=== PATIENT | female | born 1965 | race Two or more races ===

== ENCOUNTER 2016-09-25 22:05 | Emergency (ER) | payer BC ==
[2016-09-25 22:13] VITALS: RESP 18; TEMP 98
[2016-09-25] MEDS ORDERED: DIPH,PERTUS(ACELL)TETVAC-LF 0.5 ML VIAL IM ONE (22:20)
--- NOTE | 2016-09-25 22:34 | ED ---
General Adult HPI - General Chief complaint: Fall Stated complaint: head injury Time Seen by Provider: 09/25/16 22:15 Source: patient, RN notes reviewed Mode of arrival: ambulatory Limitations: no limitations - History of Present Illness Initial comments: This is a 51-year-old female who presents with a laceration to the posterior scalp after a fall that happened about 1 hour ago. Patient states she slipped in her kitchen and hit her head on a step. Patient did not lose consciousness and remembers the incident. Patient has no headache, denies any nausea/vomiting /visual changes/dizziness or neck pain. Patient states she feels fine and she was just concerned about the laceration to the scalp. Patient is not on any anticoagulants. Patient is not on any medication. Patient is unsure if she is up-to-date on her tetanus shot. Patient denies any recent fever, chills, shortness breath, chest pain, abdominal pain, nausea/vomiting/diarrhea, back pain, numbness, tingling, hematuria, or any other complaints. - Related Data Home Medications Medication Instructions Recorded Confirmed Ferrous Sulfate [Iron (65 MG 325 mg PO BID 02/06/16 02/12/16 Elemental)] Allergies Allergy/AdvReac Type Severity Reaction Status Date / Time No Known Allergies Allergy Verified 09/25/16 22:12 Review of Systems ROS Statement: Those systems with pertinent positive or pertinent negative responses have been documented in the HPI. ROS Other: All systems not noted in ROS Statement are negative. Past Medical History Past Medical History: No Reported History Additional Past Medical History / Comment(s): Anemia,heavy and freq menses, History of Any Multi-Drug Resistant Organisms: None Reported Past Surgical History: Tubal Ligation Past Anesthesia/Blood Transfusion Reactions: No Reported Reaction Additional Past Anesthesia/Blood Transfusion Reaction / Comment(s): no prob with blood transfusion Past Psychological History: No Psychological Hx Reported Smoking Status: Current some day smoker Past Alcohol Use History: Occasional Additional Past Alcohol Use History / Comment(s): started smoking on and off since age 17.smokes 1-2 cigarettes per month. Past Drug Use History: None Reported Additional Drug Use History / Comment(s): smokes marijuana 1-2 times per month - Past Family History Sister(s) Family Medical History: Cancer Additional Family Medical History / Comment(s): rectal ca Mother Family Medical History: Diabetes Mellitus Father History Unknown: Yes General Exam - General Exam Comments Initial Comments: General: The patient is awake and alert, in no distress, and does not appear acutely ill. Eye: Pupils are equal, round and reactive to light, extra-ocular movements are intact. No nystagmus. There is normal conjunctiva bilaterally. No signs of icterus. Mouth and throat: There are moist mucous membranes and no oral lesions. Neck: The neck is supple, there is no tenderness or JVD. No cervical midline tenderness. Cardiovascular: There is a regular rate and rhythm. No murmur, rub or gallop is appreciated. Respiratory: Lungs are clear to auscultation, respirations are non-labored, breath sounds are equal. No wheezes, stridor, rales, or rhonchi. Musculoskeletal: Normal ROM, no tenderness. Strength 5/5. Sensation intact. Radial Pulses equal bilaterally 2+. Neurological: A&O x 3. CN II-XII intact, There are no obvious motor or sensory deficits. Coordination appears grossly intact. Speech is normal. Skin: There is approximately 3 cm laceration to the posterior left side scalp. There is no active bleeding. Skin is warm and dry and no rashes or lesions are noted. Psychiatric: Cooperative, appropriate mood & affect, normal judgment. Limitations: no limitations Course Vital Signs 09/25/16 22:09 Temperature 98.0 F Pulse Rate 89 Respiratory 18 Rate Blood Pressure 119/66 O2 Sat by Pulse 99 Oximetry Procedures - Procedures Initial comment: The laceration was cleansed and irrigated with normal saline. The wound was inspected, and there was no evidence of injury to deep structures. No foreign body was noted in the wound. A total of 5 skin ted were placed with good approximation. Patient tolerated procedure well. Medical Decision Making - Medical Decision Making This is a 51-year-old female presented laceration to the posterior scalp. On physical exam patient is neurologically intact. There is approximately 3 cm laceration to the posterior left side scalp. There is no active bleeding. There is no cervical midline tenderness. Patient received a tetanus shot in the EC today. The wound was cleansed and rinsed with normal saline. The laceration was cleansed and irrigated with normal saline. The wound was inspected, and there was no evidence of injury to deep structures. No foreign body was noted in the wound. A total of 5 skin ted were placed with good approximation. Patient tolerated procedure well. Discussed that ted should be removed in 10 days. Discussed signs and symptoms of infection. Discussed signs and symptoms of worsening head injury. Discussed the patient should keep the area clean and dry. I discussed return parameters. Discussed that patient should follow up with PCP in one to 2 days or return to the [facility] for any worsening symptoms or for any further concerns. Patient was receptive to this plan and patient will be discharged home. Disposition Clinical Impression: Scalp laceration, Fall Disposition: HOME SELF-CARE Condition: Good Instructions: Staple Care (ED), Laceration (ED), Head Injury (ED) Additional Instructions: Please of ted removed in 10 days. Please watch for signs and symptoms of infection and worsening head injury as discussed. Please use [id number] Tylenol and or Motrin as needed for any pain or headache symptoms. Please return to the EC for any worsening symptoms or for any further concerns. Otherwise follow-up with your primary care physician in one to 2 days. Referrals: Terri De DO [Primary Care Provider] - 1-2 days Time of Disposition: 22:35
[2016-09-25 22:53] VITALS: BP 135/68; PULSE 83
== END 2016-09-25 22:45 | disposition home or self-care (01) ==
LOC: EC 22:05
DX: S01.01XA Laceration without foreign body of scalp, initial encounter (principal); S09.90XA Unspecified injury of head, initial encounter; Z23 Encounter for immunization; F17.210 Nicotine dependence, cigarettes, uncomplicated; Z79.899 Other long term (current) drug therapy; W01.198A Fall on same level from slipping, tripping and stumbling with subsequent striking against other object, initial encounter; Y92.000 Kitchen of unspecified non-institutional (private) residence as the place of occurrence of the external cause
CPT/HCPCS: 12002; 90471; 90715; 99282

== ENCOUNTER → 2016-11-07 | Outpatient (CLI) | payer BC ==
--- NOTE | 2016-11-07 13:45 | MM ---
Reason for exam: screening (asymptomatic). Baseline mammogram. Physical Findings: Nurse did not find any significant physical abnormalities on exam. MG Screening Mammo w CAD Bilateral CC and MLO view(s) were taken. The breast tissue is heterogeneously dense. This may lower the sensitivity of mammography. Finding: There are typically benign diffuse calcifications in both breasts. These results were verbally communicated with the patient and result sheet given to the patient on 11/07/16. ASSESSMENT: Benign, BI-RAD 2 RECOMMENDATION: Routine screening mammogram of both breasts in 1 year.
== END | disposition home or self-care (01) ==
LOC: RADMAMWWP 12:51
PROVIDERS: ATTEND Family Medicine
DX: Z12.31 Encounter for screening mammogram for malignant neoplasm of breast (principal)

== ENCOUNTER → 2017-03-24 | Outpatient (CLI) | payer BC ==
[2017-03-24 12:11] LABS: EKG EKG PERFORMED
[2017-03-24 12:35] LABS: Anisocytosis Slight; Basophils % (A) 0 %; CH 27.3; CHCM 29.3; Eosinophils # (A) 0.1 k/uL (0-0.7); Eosinophils % (A) 2 %; HCT 33.1 % (34.0-46.0); HDW 2.94; HGB 9.8 gm/dL (11.4-16.0); Hypochromasia Marked; Luc # (Auto) 0.13; Luc % (Auto) 3; Lymphocytes # (A) 1.4 k/uL (1.0-4.8); Lymphocytes % (A) 28 %; MCH 27.6 pg (25.0-35.0); MCHC 29.5 g/dL (31.0-37.0); MCV 93.3 fL (80.0-100.0); Mean Platelet Volume 8.2; Monocytes # (A) 0.3 k/uL (0-1.0); Monocytes % (A) 6 %; Neutrophils # (A) 3.2 k/uL (1.3-7.7); Neutrophils % (A) 62 %; RBC 3.55 m/uL (3.80-5.40); RDW 16.6 % (11.5-15.5); WBC 5.2 k/uL (3.8-10.6); WBC (Perox) 5.72
[2017-03-24 12:49] LABS: Anion Gap 9 mmol/L; Blood Urea Nitrogen 9 mg/dL (7-17); Calcium 8.8 mg/dL (8.4-10.2); Carbon Dioxide 26 mmol/L (22-30); Chloride 105 mmol/L (98-107); Glucose 80 mg/dL (74-99); Non-African American GFR(MDRD) >60 (>60 ml/min/1.73 sqM); Potassium 4.5 mmol/L (3.5-5.1); Sodium 140 mmol/L (137-145)
== END | disposition home or self-care (01) ==
LOC: LABPAT 12:02
PROVIDERS: ATTEND Obstetrics & Gynecology
DX: Z01.818 Encounter for other preprocedural examination (principal)
CPT/HCPCS: 80048; 85025; 86850; 86900; 86901; 93005

== ENCOUNTER 2017-04-01 05:47 | Inpatient (IN) | payer BC ==
[2017-03-26 11:33] VITALS: BMI 34.3
--- NOTE | 2017-03-31 20:50 | P.HPOB ---
History of Present Illness H&P Date: 03/31/17 Chief Complaint: Menorrhagia with irregular cycle, failed ablation This is a 52-year-old female 2 para 2 who presents for total abdominal hysterectomy with bilateral salpingo-oophorectomy secondary to menorrhagia with irregular cycle, failed endometrial ablation, and anemia. She has a history of an endometrial ablation performed in January 2016 secondary to menorrhagia and anemia. She continues to have bleeding irregularly to where she bleeds for almost a month at a time. She has used Provera several times to slow her bleeding down. She would like definitive surgical treatment to control her bleeding problem and would like her ovaries removed at the same time. Her pelvic ultrasound showed a uterus measuring 9 x 7 x 6 cm with the largest fibroid noted at 2.8 cm. Endometrial stripe was normal. Right ovary appeared normal and left ovary was not visualized. Obstetrical history: . History of 2 vaginal deliveries. Gynecologic history: She has no history of sexual transmitted diseases. She has had a tubal ligation. Social history: She is and works part-time at a bar. Review of Systems Constitutional: Reports fatigue Eyes: denies blurred vision, denies pain Cardiovascular: Denies chest pain, Denies shortness of breath Respiratory: Denies cough Gastrointestinal: Denies abdominal pain, Denies diarrhea, Denies nausea, Denies vomiting Genitourinary: Denies pelvic pain Menstruation: Reports menses 8 or > days, Reports menses variable Musculoskeletal: Denies myalgias Integumentary: Denies pruritus, Denies rash Neurological: Denies numbness, Denies weakness Psychiatric: Denies anxiety, Denies depression Past Medical History Additional Past Medical History / Comment(s): Anemia,heavy and freq menses, History of Any Multi-Drug Resistant Organisms: None Reported Past Surgical History: Tubal Ligation, Uterine Ablation Past Anesthesia/Blood Transfusion Reactions: No Reported Reaction Additional Past Anesthesia/Blood Transfusion Reaction / Comment(s): . Past Psychological History: No Psychological Hx Reported Smoking Status: Current some day smoker Past Alcohol Use History: Occasional Past Drug Use History: Marijuana (Daily) - Past Family History Sister(s) Family Medical History: Cancer Additional Family Medical History / Comment(s): rectal ca Mother Family Medical History: Diabetes Mellitus Father History Unknown: Yes Medications and Allergies Home Medications Medication Instructions Recorded Confirmed Type Ferrous Sulfate [Iron (65 MG 325 mg PO BID 02/06/16 03/26/17 History Elemental)] Medroxyprogesterone Acetate 10 mg PO DAILY PRN 03/26/17 03/26/17 History [Provera] Allergies Allergy/AdvReac Type Severity Reaction Status Date / Time No Known Allergies Allergy Verified 03/26/17 11:20 Exam Osteopathic Statement: *. No significant issues noted on an osteopathic structural exam other than those noted in the History and Physical/Consult. HEENT: Within normal limits Heart: Regular rate and rhythm Lungs: Clear to auscultation bilaterally Abdomen: Soft, nontender Pelvic exam: Uterus is small, nontender, with no adnexal masses or tenderness palpated. Extremities: Negative Homans Assessment and Plan (1) Anemia Status: Acute (2) Menorrhagia with irregular cycle Status: Acute Plan: Proceed with total abdominal hysterectomy with bilateral salpingo-oophorectomy. I have discussed the risks, benefits, and alternative therapies for the above- mentioned procedure and for both sedation/anesthesia as well as necessary blood products administration, if indicated, as they pertain to this patient. The patient has indicated her understanding and acceptance of the risks and procedures discussed.
[~2017-04-01 05:47] MED LIST: ceFAZolin 2 GM in SODIUM CHLORIDE 0.9% 100 ML IVPB ONE
[2017-04-01] MEDS ORDERED: LACTATED RINGERS 1,000 ML IV SCH (05:59)
[2017-04-01] MEDS ORDERED: SCOPOLAMINE 1.5MG/72HR PATCH TRANSDERM ONE (05:59)
[2017-04-01] MEDS ORDERED: HYDROmorphone 1 MG/ML 1 ML SYRINGE IVP PRN (05:59)
[2017-04-01] MEDS ORDERED: DEXAMETHASONE SOD PHOSPHATE 10 MG/ML 1 ML VIAL IV ONE (05:59)
[2017-04-01] MEDS ORDERED: FAMOTIDINE 20 MG/2 ML VIAL IV PRN (05:59)
[2017-04-01] MEDS ORDERED: LIDOCAINE 1% 20 ML VIAL (10MG/ML) FOR IV START INTRADERMA PRN (05:59)
[2017-04-01] MEDS ORDERED: fentaNYL (PF) 50 MCG/ML 2 ML AMP IV ONE ×3 (07:10→07:17)
[2017-04-01] MEDS: MIDAZOLAM 2 MG/2 ML VIAL IV PRN ×2 (07:10→07:17)
[2017-04-01] MEDS ORDERED: MIDAZOLAM 2 MG/2 ML VIAL ONE (07:44)
[2017-04-01] MEDS ORDERED: ROCURONIUM BROMIDE 10 MG/ML 10 ML VIAL IV ONE (07:44)
[2017-04-01] MEDS ORDERED: fentaNYL (PF) 50 MCG/ML 2 ML AMP ONE (07:44)
[2017-04-01] MEDS ORDERED: PROPOFOL 10 MG/ML 20 ML VIAL IV ONE (07:44)
[2017-04-01] MEDS ORDERED: GLYCOPYRROLATE 0.2 MG/ML 2 ML VIAL ONE (07:44)
[2017-04-01] MEDS ORDERED: SUCCINYLCHOLINE CHLORIDE 100 MG/5 ML SYR IV ONE (07:44)
[2017-04-01] MEDS ORDERED: NEOSTIGMINE 1 MG/ML 10 ML VIAL ONE (07:44)
[2017-04-01] MEDS ORDERED: LIDOCAINE 1% INJ 10MG/ML (20 ML MDV) ONE (07:44)
[2017-04-01] MEDS ORDERED: ePHEDrine SULFATE/0.9% NACL/PF 50 MG/5 ML SYRINGE IV ONE (07:44)
[2017-04-01] MEDS ORDERED: LACTATED RINGERS 1,000 ML IV ONE (08:24)
--- NOTE | 2017-04-01 08:55 | P.OP ---
Date of Procedure: 04/01/17 Preoperative Diagnosis: Menorrhagia with irregular cycle Failed endometrial ablation Anemia Postoperative Diagnosis: Same Procedure(s) Performed: Total abdominal hysterectomy with bilateral salpingo-oophorectomy Implants: Anesthesia: GETA, spinal (Duramorph) Surgeon: Abigail Hamilton Polygraph Technician #1: Bri Edwards Estimated Blood Loss (ml): 30 Pathology: other (Uterus with cervix and bilateral tubes and ovaries) Condition: stable Disposition: floor Indications for Procedure: This is a 52-year-old female 2 para 2 who presents for total abdominal hysterectomy with bilateral salpingo-oophorectomy secondary to menorrhagia with irregular cycle, failed endometrial ablation, and anemia. She has a history of an endometrial ablation performed in January 2016 secondary to menorrhagia and anemia. She continues to have bleeding irregularly to where she bleeds for almost a month at a time. She has used Provera several times to slow her bleeding down. She would like definitive surgical treatment to control her bleeding problem and would like her ovaries removed at the same time. Her pelvic ultrasound showed a uterus measuring 9 x 7 x 6 cm with the largest fibroid noted at 2.8 cm. Endometrial stripe was normal. Right ovary appeared normal and left ovary was not visualized. Operative Findings: Uterus is normal sized with small fibroids. The left ovary did have a small simple cyst that did rupture spontaneously with clear fluid noted. Otherwise both ovaries and tubes were normal. Description of Procedure: The patient is taken to the operating room where she is placed in the dorsal supine position. She is prepped and draped in the normal sterile fashion including Cutler catheter insertion and vaginal prep. A Pfannenstiel skin incision is made through the previous laparotomy scar with a scalpel. A second knife was used to carry the incision down to the underlying layer of fascia. The fascia was nicked in the midline with a scalpel and then extended laterally bilaterally with Roach scissors. The superior aspect of the fascial incision was grasped with Max clamps, elevated off the underlying rectus muscle in the midline and then cut with Roach scissors. The inferior aspect of the fascial incision was grasped with Max clamps, elevated off the underlying rectus muscle in the midline and then cut with Roach scissors. Next the peritoneum was identified and entered sharply with Roach scissors. It is extended superiorly and in fairly with Metzenbaum scissors with good visualization of underlying structures. Next the Stephanie retractor is placed in the bladder blade was inserted. The bowels were packed with a 3 yard laparotomy sponge. Next the uterus is brought up incision and the corneal regions are grasped with Stephania clamps on both sides. At this point the left ovarian cyst spontaneously ruptured and clear fluid was noted. The cyst measured approximately 3-4 cm. Next the fallopian tube on the left side is brought up to the incision and the mesosalpinx is clamped with a Bailee clamp. This is cut with Roach scissors and then sutured with 0 Vicryl suture in Bailee transfixion stitch. The remaining mesosalpinx and infundibulopelvic ligament is also clamped with a Bailee clamp, cut with Roach scissors, and sutured with 0 Vicryl suture in Bailee transfixion stitches. Next the uterine ovarian ligament is clamped with a Bailee clamp, cut with Roach scissors, and then sutured with 0 Vicryl suture in Bailee transfixion stitch. The same procedure is carried out on the right side. The uterine arteries are then clamped with Bailee clamp on either side. The vesicouterine peritoneum was sharply dissected away from the bladder with Metzenbaum scissors and pushed inferiorly. The uterine arteries are then cut with Roach scissors, and sutured with 0 Vicryl suture in Bailee transfixion stitches. Next the cardinal ligaments were clamped on either side with Bailee clamp, cut with Roach scissors, and sutured with 0 Vicryl suture in Bailee transfixion stitches. The uterosacral ligaments are clamped on either side with Bailee clamps, cut with Roach scissors, and sutured with 0 Vicryl suture in Bailee transfixion stitches on either side. The edges of the vaginal cuff were clamped on either side with a Bailee clamp, cut with Roach scissors, and sutured with 0 Vicryl suture in Bailee transfixion stitches and held on either side. The vaginal mucosa was then cut just below the level of the cervix and the specimen is removed from the field. The edges of the vaginal cuff were held with Max clamps. Next the previously held corners of each side of the vaginal cuff were then whipstitched along the connective tissue on either side and brought through the corner of the cuff and tied. Next the vaginal cuff was sutured with 0 Vicryl suture in a running locked fashion. Hemostasis was noted. Copious irrigation is carried out with warm saline. Excellent hemostasis is noted. All sponges are removed from the abdomen. The peritoneum is then closed with 0 Vicryl suture in a running fashion. The muscle was then reapproximated with 0 Vicryl suture in interrupted fashion. The fascia layer is then closed with 0 PDS suture in a running fashion with the knots buried on either side and in the midline. Next the subcutaneous tissues closed with 2-0 Vicryl suture in a running fashion. The skin is closed with ted. All sponge and needle counts are correct and the patient is taken to recovery room in stable condition.
[2017-04-01] MEDS ORDERED: HYDROmorphone 1 MG/ML 1 ML SYRINGE IVP ONE ×6 (09:10→09:30)
[2017-04-01] MEDS ORDERED: ONDANSETRON 4 MG/2 ML VIAL IVP ONE (09:35)
[2017-04-01] MEDS ORDERED: SIMETHICONE 80 MG CHEWABLE PO PRN (10:07)
[2017-04-01] MEDS ORDERED: Acetaminophen-Codeine 300-30mg TAB PO PRN ×2 (10:07)
[2017-04-01] MEDS ORDERED: diphenhydrAMINE 50 MG/ML 1 ML VIAL IVP PRN ×2 (10:07→11:02)
[2017-04-01] MEDS ORDERED: ONDANSETRON 4 MG/2 ML VIAL IVP PRN ×2 (10:07→11:02)
[2017-04-01] MEDS ORDERED: ZOLPIDEM 5 MG TAB PO PRN (10:07)
[2017-04-01] MEDS: LACTATED RINGERS 1,000 ML IV SCH ×2 (10:30→19:52)
[2017-04-01] MEDS: SENNOSIDES-DOCUSATE SODIUM 1 EACH TAB PO SCH (10:32)
[2017-04-01] MEDS ORDERED: MORPHINE SULFATE 4 MG/ML SYRINGE IVP PRN (11:02)
[2017-04-01] MEDS ORDERED: NALOXONE 0.4 MG/ML 1 ML VIAL IV PRN (11:02)
[2017-04-01] MEDS: METOCLOPRAMIDE 5 MG/ML 2 ML VIAL IVP PRN ×2 (11:53→20:54)
[2017-04-01] MEDS: KETOROLAC 30 MG/ML 1 ML VIAL IVP PRN (17:10)
[2017-04-02] MEDS: SENNOSIDES-DOCUSATE SODIUM 1 EACH TAB PO SCH ×3 (02:44→21:47)
[2017-04-02] MEDS: LACTATED RINGERS 1,000 ML IV SCH ×2 (06:04→16:35)
[2017-04-02] MEDS: KETOROLAC 30 MG/ML 1 ML VIAL IVP PRN (06:27)
[2017-04-02 06:56] LABS: Basophils % (A) 0 %; CH 26.6; CHCM 29.1; Eosinophils % (A) 0 %; HCT 31.3 % (34.0-46.0); HDW 2.81; HGB 9.3 gm/dL (11.4-16.0); Hypochromasia Marked; Luc # (Auto) 0.23; Luc % (Auto) 3; Lymphocytes # (A) 1.4 k/uL (1.0-4.8); Lymphocytes % (A) 15 %; MCH 27.2 pg (25.0-35.0); MCHC 29.6 g/dL (31.0-37.0); MCV 91.7 fL (80.0-100.0); Mean Platelet Volume 7.6; Monocytes # (A) 0.6 k/uL (0-1.0); Monocytes % (A) 7 %; Neutrophils # (A) 6.8 k/uL (1.3-7.7); Neutrophils % (A) 75 %; RBC 3.41 m/uL (3.80-5.40); RDW 15.3 % (11.5-15.5); WBC 9.1 k/uL (3.8-10.6); WBC (Perox) 9.38
--- NOTE | 2017-04-02 07:04 | P.PN ---
Progress Note - Text The patient is doing well post op.She received intrathecal duramorph for MERON.She denies any priritis , however, she states that her incisional pain is8/ 10/ Continue using Morphine IV for post op pain.
[2017-04-02] MEDS ORDERED: ACETAMINOPHEN TAB 325 MG TAB PO PRN (07:37)
--- NOTE | 2017-04-02 08:31 | P.PN ---
Subjective Principal diagnosis: Status post MERON/BSO postoperative day #1 Patient is doing ok. She is complaining of abdominal and back pain. She has not passed any flatus yet. She did have some nausea and vomiting yesterday but it has resolved today. Vaginal bleeding is very minimal. Objective - Vital Signs Vital signs: Vital Signs Temp 98.3 F 04/02/17 07:58 Pulse 69 04/02/17 07:58 Resp 15 04/02/17 07:58 BP 98/67 04/02/17 07:58 Pulse Ox 98 04/02/17 07:58 Intake & Output 04/01/17 04/02/17 04/02/17 18:59 06:59 18:59 Intake Total 1360 200 90 Output Total 1005 1250 Balance 355 -1050 90 Weight 77.11 kg Intake: IV 1300 Oral 60 200 90 Output: Urine 975 1250 Estimated Blood Loss 30 Other: Voiding Method Indwelling Catheter Indwelling Catheter Toilet - Constitutional General appearance: Present: no acute distress - Gastrointestinal Gastrointestinal Comment(s): Incision is clean dry and intact with ted in place. General gastrointestinal: Present: normal bowel sounds, tenderness (Minimal) - Genitourinary Genitourinary Comment(s): Mehreen-pad shows no bleeding - Labs CBC & Chem 7: 04/02/17 06:32 Labs: Abnormal Lab Results - Last 24 Hours (Table) 04/02/17 Range/Units 06:32 RBC 3.41 L (3.80-5.40) m/uL Hgb 9.3 L (11.4-16.0) gm/dL Hct 31.3 L (34.0-46.0) % MCHC 29.6 L (31.0-37.0) g/dL Assessment and Plan (1) Anemia Status: Acute (2) Menorrhagia with irregular cycle Status: Acute Plan: Impression is status post total abdominal hysterectomy with bilateral cervical for acne postoperative day #1. Plan is to encourage ambulation. May advance diet as tolerated after flatus. Will Hep-Lock IV.
[2017-04-02] MEDS: IBUPROFEN 600 MG TAB PO PRN (13:14)
[2017-04-02] MEDS: METOCLOPRAMIDE 5 MG/ML 2 ML VIAL IVP PRN (18:23)
[2017-04-02] MEDS ORDERED: BISACODYL 10 MG SUPP RECTAL STA (18:39)
[2017-04-03] MEDS: SENNOSIDES-DOCUSATE SODIUM 1 EACH TAB PO SCH (08:34)
--- NOTE | 2017-04-03 08:37 | P.DS ---
Providers Date of admission: 04/01/17 05:47 Attending physician: Abigail Hamilton Primary care physician: Terri De - Discharge Diagnosis(es) (1) Anemia Current Visit: No Status: Acute (2) Menorrhagia with irregular cycle Current Visit: No Status: Acute Hospital Course: As is a 52-year-old female who underwent a total abdominal hysterectomy with bilateral salpingo-oophorectomy on 04/01/2017. Her postoperative course has been essentially uncomplicated. On postoperative day #1 she was having some issues with gas pain but by postoperative day #2 she has passed flatus and bowel movement and feels much better. Her pain is fairly well controlled with ibuprofen and Tylenol 3. She is ambulating without difficulty. She has urinated. Vital signs are stable. Abdomen is soft with positive bowel sounds 4. Extremities show negative Homans. Incision is clean dry and intact ted in place. Mehreen-pad shows very scant serosanguineous discharge. Impression is status post total abdominal hysterectomy with bilateral salpingo-oophorectomy postoperative day #2. Plan is to discharge home today. Routine postoperative instructions are given. [place] will be removed and Steri-Strips placed prior to discharge. She will be given prescriptions for ibuprofen and Tylenol 3. She is advised to follow up in the office in 1 week for a postoperative check. She is advised to call the office if she has any further questions or concerns prior to her appointment time. Procedures: Total abdominal hysterectomy with bilateral salpingo-oophorectomy on 04/01/2017 Patient Condition at Discharge: Stable Plan - Discharge Summary New Discharge Prescriptions: New Acetaminophen-Codeine 300-30mg [Tylenol w/codeine #3] 1 each PO Q4HR PRN #30 tab PRN Reason: Moderate Pain Ibuprofen [Motrin] 600 mg PO Q6HR PRN #60 tab PRN Reason: Mild Discomfort No Action Ferrous Sulfate [Iron (65 MG Elemental)] 325 mg PO Q24HR Discharge Medication List Ferrous Sulfate [Iron (65 MG Elemental)] 325 mg PO Q24HR 02/06/16 [History] Acetaminophen-Codeine 300-30mg [Tylenol w/codeine #3] 1 each PO Q4HR PRN #30 tab 04/03/17 [Rx] Ibuprofen [Motrin] 600 mg PO Q6HR PRN #60 tab 04/03/17 [Rx] Follow up Appointment(s)/Referral(s): Abigail Hamilton DO [Doctor of Osteopathic Medicine] - 1 Week Patient Instructions/Handouts: Hysterectomy (GEN) Activity/Diet/Wound Care/Special Instructions: Diet as tolerated. May shower, but no tub baths for 1 week. No intercourse for 6 weeks. No heavy lifting. No driving until off of narcotic pain medication. Discharge Disposition: HOME SELF-CARE
[2017-04-03 09:00] VITALS: BP 107/74; PULSE 98; RESP 16; TEMP 97.7
[2017-04-03] MEDS: IBUPROFEN 600 MG TAB PO PRN (09:17)
== END 2017-04-03 09:50 | disposition home or self-care (01) | DRG 743 ==
LOC: 2ORMAIN 05:47 → 6PED 08:54
PROVIDERS: ADMIT Obstetrics & Gynecology; ATTEND Obstetrics & Gynecology
PROC: 0UT90ZZ Resection of Uterus, Open Approach (ICD-10-PCS; principal; 2017-04-01 07:30)
PROC: 0UTC0ZZ Resection of Cervix, Open Approach (ICD-10-PCS; principal; 2017-04-01 07:30)
PROC: 0UT70ZZ Resection of Bilateral Fallopian Tubes, Open Approach (ICD-10-PCS; principal; 2017-04-01 07:30)
PROC: 0UT20ZZ Resection of Bilateral Ovaries, Open Approach (ICD-10-PCS; principal; 2017-04-01 07:30)
DX: N92.0 Excessive and frequent menstruation with regular cycle (principal); D25.9 Leiomyoma of uterus, unspecified; D64.9 Anemia, unspecified; F17.200 Nicotine dependence, unspecified, uncomplicated; Z80.0 Family history of malignant neoplasm of digestive organs
CPT/HCPCS: 81025; 85025; 86850; 86900; 86901; 88307

== ENCOUNTER → 2023-07-03 | Outpatient (CLI) | payer BC ==
--- NOTE | 2023-07-03 10:05 | CA ---
Transthoracic Echo Report Name: Amita Seymour Age: 58 Gender: F : 1965 Exam Date: 07/03/2023 08:35 Exam Location: [facility] Ht (in): 62 Wt (lb): 170 Ordering Physician: Terri De DO Attending/Referring Phys: Roxanna Garcias [employer] Senior Manager Lidya Marley RDCS Procedure CPT: Indications: R94.31 ABNORMAL EKG Cardiac Hx: Technical Quality: Good Contrast 1: Total Dose (mL): Contrast 2: Total Dose (mL): MEASUREMENTS (Male / Female) Normal Values 2D ECHO LV Diastolic Diameter PLAX 4.7 cm 4.2 - 5.9 / 3.9 - 5.3 cm LV Systolic Diameter PLAX 3.0 cm IVS Diastolic Thickness 0.9 cm 0.6 - 1.0 / 0.6 - 0.9 cm LVPW Diastolic Thickness 1.0 cm 0.6 - 1.0 / 0.6 - 0.9 cm LV Relative Wall Thickness 0.4 RV Internal Dim ED PLAX 3.3 cm LA Systolic Diameter LX 3.3 cm 3.0 - 4.0 / 2.7 - 3.8 cm LV Diastolic Volume MOD 4C 71.4 cm??? LV Systolic Volume MOD 4C 31.4 cm??? LV Ejection Fraction MOD 4C 56.0 % LV Cardiac Index MOD 4C 1219.9 cm???/min???m??? LV Diastolic Length 4C 7.1 cm LV Systolic Length 4C 5.6 cm LV Diastolic Volume MOD 2C 77.1 cm??? LV Systolic Volume MOD 2C 28.9 cm??? LV Ejection Fraction MOD 2C 62.5 % LV Cardiac Index MOD 2C 1473.5 cm???/min???m??? LV Diastolic Length 2C 7.0 cm LV Systolic Length 2C 5.7 cm LA Volume 40.8 cm??? 18 - 58 / 22 - 52 cm??? LA Volume Index 21.9 cm???/m??? 16 - 28 cm???/m??? M-MODE Aortic Root Diameter MM 2.8 cm MV E Point Septal Separation 0.6 cm AV Cusp Separation MM 1.9 cm DOPPLER AV Peak Velocity 134.0 cm/s AV Peak Gradient 7.2 mmHg MV Area PHT 3.2 cm??? Mitral E Point Velocity 83.6 cm/s Mitral A Point Velocity 91.2 cm/s Mitral E to A Ratio 0.9 MV Deceleration Time 238.7 ms MV E' Velocity 5.2 cm/s Mitral E to MV E' Ratio 16.1 TR Peak Velocity 224.6 cm/s TR Peak Gradient 20.2 mmHg Right Ventricular Systolic Press 24.6 mmHg FINDINGS Left Ventricle Left ventricular ejection fraction is estimated at 55-60 %. Left ventricular cavity size normal. Left ventricular wall thickness normal.normal left ventricular wall motion. Right Ventricle Right ventricular systolic pressure within normal limits.normal right ventricular size and function. Right Atrium Normal right atrial size. Left Atrium Normal left atrial size. Mitral Valve Structurally normal mitral valve. Mild mitral regurgitation. Aortic Valve Trileaflet aortic valve. No aortic valve stenosis or regurgitation. Tricuspid Valve Structurally normal tricuspid valve. Mild tricuspid regurgitation. Pulmonic Valve Structurally normal pulmonic valve. No pulmonic regurgitation. Pericardium No pericardial effusion. Aorta Normal size aortic root and proximal ascending aorta. CONCLUSIONS 1. Normal left ventricle size and systolic function 2. Mild mitral and tricuspid regurgitation with no evidence of pulmonary hypertension Previewed by: Dr. Lan España MD (Electronically Signed) Final Date: 03 July 2023 10:04
--- NOTE | 2023-07-03 10:10 | CA ---
Exercise Stress Test Report Name: Amita Seymour Exam Date: 07/03/2023 09:06 Exam Location: [place] Stress Ht (in): 62 Wt (lb): 170 BSA: 1.78 Ordering Phys: Terri De DO Referring Phys: Roxanna Garcias [facility] Technologist: Zhen Rangel Age: 58 Gender: F : 1965 Procedure CPT: Indications: R94.31 ABNORMAL EKG ICD-10 Codes: Patient History: OCCASIONAL SMOKER Medications: NONE,,,,, Meds past 24 hrs: Pretest Chest Pain: STRESS TEST Michel Protocol Exercise Duration (min:sec): 06:[address] Depressions (mm): Angina Score: Cuevas Score: Resting HR (bpm): 69 Peak HR (bpm): 109 Resting BP (mmHg): 125 / 0 Peak BP (mmHg): 196 / 87 MPHR: 163 Target HR: 139 % MPHR: 67 METS: 7.1 Total Dose: Peak Dose: Atropine: Double Product: 57658 BP Response: Stress Termination: Fatigue,Poor Motivation Stress Symptoms: NO SYMPTOMS Stress Summary: The patient's target heart rate was not achieved due to fatigue ECG ANALYSIS Resting ECG: Sinus rhythm. Normal conduction. Ventricular premature contraction. Normal repolarization. Stress ECG: No ECG evidence of ischemia with exercise. Ventricular premature contraction. CONCLUSIONS 1. Decrease exercise tolerance 2. Occasional single PVCs 3. Nondiagnostic echocardiographic stress testing secondary to the inability to achieve 85% maximum redictate heart rate. Patient only achieved 67% of her target 4. If clinically indicated a pharmacological imaging test will be helpful. Dr. Lan España MD (Electronically Signed) Final Date: 03 July 2023 10:09
== END | disposition home or self-care (01) ==
LOC: RADECHMAIN 08:08
PROVIDERS: ATTEND Family Medicine
DX: I08.1 Rheumatic disorders of both mitral and tricuspid valves (principal); I49.3 Ventricular premature depolarization; R94.31 Abnormal electrocardiogram [ECG] [EKG]
CPT/HCPCS: 93017; 93306

== ENCOUNTER → 2023-07-03 | Outpatient (CLI) | payer BC ==
--- NOTE | 2023-07-03 10:55 | MM ---
Reason for Exam: Screening (asymptomatic). Last mammogram was performed 6 year(s) and 8 month(s) ago. Patient History: Menarche at age 17. First Full-Term at age 20. Postmenopausal. Risk Values: Magnolia 5 year model risk: 0.8%. NCI Lifetime model risk: 5.2%. Prior Study Comparison: 11/07/2016 Bilateral Screening Mammogram, [facility]. Tissue Density: The breast tissue is heterogeneously dense. This may lower the sensitivity of mammography. Findings: Analyzed By CAD. There is no suspicious group of calcifications within either breast. Benign-appearing round calcifications within both breasts. No suspicious new mass of the left breast. Ovoid circumscribed mass in the right breast measuring up to 1.4 cm in the upper outer quadrant at middle depth. Possible cyst. Overall Assessment: Incomplete: need additional imaging evaluation, BI-RAD 0 Management: Diagnostic Breast Ultrasound of the right breast. A clinical breast exam by your physician is recommended on an annual basis and results should be correlated with mammographic findings. [facility] will attempt to contact patient to return for supplemental views and ultrasound if indicated. Note on Magnolia scores and lifetime risk: 1. A Magnolia score greater than 3% is considered moderate risk. If this is the case, consider specialist referral to assess eligibility for a risk reducing agent. If overall lifetime risk for the development of breast cancer is 20% or higher, the patient may qualify for future screening with alternating mammogram and breast MRI. Electronically signed and approved by: Nicholas Grey D.O.
== END | disposition home or self-care (01) ==
LOC: RADMAMWWP 09:27
PROVIDERS: ATTEND Family Medicine
DX: Z12.31 Encounter for screening mammogram for malignant neoplasm of breast (principal); Z78.0 Asymptomatic menopausal state
CPT/HCPCS: 77063; 77067

== ENCOUNTER → 2023-07-14 | Outpatient (CLI) | payer BC ==
--- NOTE | 2023-07-14 13:01 | USB ---
Reason for Exam: Additional evaluation requested from abnormal screening. Patient History: Menarche at age 17. First Full-Term at age 20. Postmenopausal. Risk Values: Magnolia 5 year model risk: 0.8%. NCI Lifetime model risk: 5.2%. Technique: Method: Targeted. Prior Study Comparison: 11/07/2016 Bilateral Screening Mammogram, [facility]. 07/03/2023 Bilateral MG 3D screening mammo w/cad, [facility]. Findings: The upper outer quadrant of the right breast, the axilla of the right breast and the retroareolar of the right breast were scanned. Technique utilized:US breast workup limited RT Image; Ultrasound imaging of: Area of concern, retroareolar region and axilla. Appearing cyst at 10:00 5 cm from nipple measuring 11 mm. No evidence for organizing fluid collection or mass. Overall Assessment: Benign, BI-RAD 2 Management: Screening Mammogram of both breasts in 1 year. A clinical breast exam by your physician is recommended on an annual basis and results should be correlated with mammographic findings. This exam should not preclude additional follow-up of suspicious palpable abnormalities. Results were given to the patient verbally at the time of exam. Electronically signed and approved by: Francisco Sevilla DO
== END | disposition home or self-care (01) ==
LOC: RADUSWWP 12:22
PROVIDERS: ATTEND Family Medicine
DX: N60.01 Solitary cyst of right breast (principal); Z78.0 Asymptomatic menopausal state

== ENCOUNTER → 2023-08-04 | Outpatient (CLI) | payer BC | END | disposition home or self-care (01) | LOC: RADNMMAIN 08:38 | PROVIDERS: ATTEND Family Medicine | DX: Z53.9 Procedure and treatment not carried out, unspecified reason (principal) ==

== ENCOUNTER → 2023-12-24 | Outpatient (CLI) | payer BC ==
[~2023-12-24] MED LIST changes: +REGADENOSON 0.4 MG/5 ML SYRINGE IV PRN; -ceFAZolin 2 GM in SODIUM CHLORIDE 0.9% 100 ML IVPB ONE
--- NOTE | 2023-12-24 12:16 | NM ---
EXAMINATION TYPE: NM stress lexiscan cardiolite DATE OF EXAM: 12/24/2023 COMPARISON: NONE HISTORY: Valve disorder TECHNIQUE: After the intravenous administration of 10.7 mCi Tc 99m Sestamibi - Cardiolite resting SP ECT images acquired 45 minutes post injection. At peak stress 25.8 mCi Tc 99m Sestamibi - Stress images obtained 35 minutes post injection The patient was stressed with 0.4mg Lexiscan. FINDINGS: There may be a fixed defect along the inferior wall near the cardiac apex. Consider prior infarct bakari dev artifact at this level. No reversible stress defects on Spect images There may be some dyskinesia at the cardiac apex. Ejection fraction is calculated to be 54 %. IMPRESSION: 1. No stress-induced ischemic changes. 2. Some dyskinesia at the cardiac apex. 3. Mild inferior wall at the cardiac apex may be prior infarct.
--- NOTE | 2023-12-24 12:20 | CA ---
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 Marty Roper MD (Electronically Signed) Final Date: 24 Dec 2023 12:19
== END | disposition home or self-care (01) ==
LOC: RADNMMAIN 07:47
PROVIDERS: ATTEND Family Medicine
DX: G24.8 Other dystonia (principal); I08.1 Rheumatic disorders of both mitral and tricuspid valves
CPT/HCPCS: 93017; 78452; A9500; J2785